=== PATIENT | female | born 1995 | race Two or more races ===

== ENCOUNTER 2024-05-18 07:45 | Outpatient (CLI) | payer MEDICAID, SELFPAY ==
[2024-05-18 07:59] VITALS: BP 119/76; PULSE 89
[2024-05-18 08:04] VITALS: BMI 31.5
== END 2024-05-18 08:50 | disposition home or self-care (01) ==
LOC: S4S1 07:50 → S4SX 07:51
PROVIDERS: Referring Provider Advanced Practice Midwife; Visit Provider Advanced Practice Midwife
DX: Z34.83 Encounter for supervision of other normal pregnancy, third trimester (principal); Z36.9 Encounter for antenatal screening, unspecified; Z3A.40 40 weeks gestation of pregnancy
CPT/HCPCS: 59025

== ENCOUNTER 2024-05-18 15:31 | Inpatient (IN) | payer MEDICAID, SELFPAY ==
[2024-05-18] VITALS (33 sets, daily range): BP systolic 103–121; BP diastolic 55–73; PULSE 67–97; O2SAT 96–99; BMI 30.9
[2024-05-18 16:13] LABS: Basophils % (Auto) 0 % (0-2.5); Eosinophils % (Auto) 0 % (0-10); Hematocrit 34.3 % (36.0-46.0); Hemoglobin 12.1 g/dL (12.0-16.0); Immature Granulocytes % (Auto) 1 % (0-0); Immature Granulocytes Auto 0.05 Thou/mm3 (0.00-0.00); Lymphocytes # (Auto) 1.3 Thou/mm3 (1.0-4.8); Lymphocytes % (Auto) 18 % (10-50); Mean Corpuscular HGB Conc 35.3 g/dl (31.0-37.0); Mean Corpuscular Hemoglobin 31.7 pg (25.0-35.0); Mean Corpuscular Volume 90 fL (80-100); Monocytes # (Auto) 0.5 Thou/mm3 (0.0-0.8); Monocytes % (Auto) 7 % (0-12); Neutrophils # (Auto) 5.2 Thou/mm3 (1.8-7.7); Neutrophils % (Auto) 74 % (37-80); Nucleated Red Blood Cell % 0 /100 WBC (0); Platelet Count 192 Thou/mm3 (140-440); RDW Standard Deviation 44.5 fL (36.4-46.3); Red Blood Count 3.82 Miln/mm3 (4.00-5.20)
--- NOTE | 2024-05-18 16:14 | XR_ITS ---
Examination: Complete OB ultrasound greater than 14 weeks Date and time of exam: May 18, 2024 1648 hrs. Indications: Labor evaluation, unknown presentation Findings: Viable intrauterine single fetus with single amniotic sac presentation cephalic Cardiac motion 158 BPM Placenta fundal grade 3 Umbilical cord insertion 3 vessel seen Amniotic fluid index 11.3 cm spine maternal left Cervix 3.2 cm Ovaries obscured by bowel gas. Composite estimated gestational age based on BPD, head circumference, abdominal circumference, femur length is 38 weeks 2 days Estimated weight 3464 g. Survey of intracranial anatomy, spinal anatomy, abdominal anatomy, four-chamber heart performed with no abnormalities identified. Impression: Viable intrauterine gestation cephalic presentation Estimated gestational age 38 weeks 2 days Estimated weight 3464.8 g.
[2024-05-18 16:50] LABS: Syphilis Nonreactive (Nonreactive)
[2024-05-18] MEDS: DINOPROSTONE 10 MG VAG.SUPP VAGINAL (18:11)
[2024-05-19] VITALS (53 sets, daily range): BP systolic 84–200; BP diastolic 47–117; PULSE 65–94; RESP 15–17; TEMP 36.9–37.2; O2SAT 91–99; BMI 30.9
--- NOTE | 2024-05-19 05:25 | PD.LDHP ---
Documentation for date of: 05/19/24 OB Labor/Induct. HPI History of Present Illness Chief complaint: elective induction : 3 Para: 1 Term pregnancies: 1 pregnancies: 0 Living children: 1 History of Abortions: Spontaneous and Elective: 1 History of Vaginal deliveries: 1 History of sections: No History of : No Date of last menstrual period: 08/11/23 LAYLA: 05/17/24 Gestational Age (weeks): 40 Gestational Age (days): 2 Gestational age based on last menstrual period: 40 Indication for induction: other (elective, term) History of present illness: 28-year-old 3 para 1 admit to labor and delivery for induction of labor. Patient is been followed at [facility] care. First visit 15 weeks. Last period August 11, 2023. Estimated due date 05/17/2024.. First ultrasound was in November and this confirmed dates. And then patient had a 22-week ultrasound that also confirm dates. Denies social habits. Denies surgery. Denies chronic illness. Patient is O+, antibody screen negative, RPR nonreactive, rubella immune, hepatitis B-, hep C negative, HIV negative, GBS negative, patient had recurrent UTIs and was taking prophylactic antibiotics with the . And 1 hour GTT was normal History of Present Dating criteria: LMP confirmed by 1st trimester US Adequate Care: Yes Ultrasounds: normal 1st trimester US and normal mid trimester US Obstetrical complications: none Medical complications: none Labs Labs: Negative: Hepatitis B, HIV, Chlamydia, Gonorrhea and Group Beta Strep Review of Systems Review of Systems Systems Reviewed: All systems reviewed, normal except as documented Past Medical History Surgical History SURGICAL: Negative Section Meds Home Medications and Allergies Home Medications ?Medication ?Instructions ?Recorded ?Confirmed ?Type [id number] 1 mg 2 tab PO DAILY 05/18/24 05/18/24 History tablet Allergies Allergy/AdvReac Type Severity Reaction Status Date / Time No Known Allergies Allergy Verified 05/18/24 08:06 OB Exam Physical Exam Vital signs: Temp Pulse Resp BP Pulse Ox 98.5 F 65 17 105/63 98 05/19/24 01:18 05/19/24 01:18 05/19/24 01:18 05/19/24 01:18 05/18/24 20:47 Narrative: Normal heart rate and rhythm. Lungs clear no wheezes. Gravid abdomen. Gynecoid pelvis. Estimated weight 8 pounds. Patient has a history of macrosomic baby. Vaginal exam on admission was 80%, 1, -3. Vertex. heart rate category 1 with accelerations and moderate variability and contractions about every 2 to 4 minutes Detailed Labor and Delivery Exam Dilation (cm): 1 Effacement (%): 70 Cervix position: mid station: -3 Consistency: soft Presentation: Vertex Cervical ripeness score: 4 Membranes: intact Baseline heart rate: 135 monitor accelerations: 15x15 monitor decelerations: None terminal operations supervisor variability: Moderate (11-25) Contraction frequency (min): 2-4 Contraction duration (sec): 30 Tachysystole: No Contraction intensity: Mild OB Results Labs 05/18/24 15:45 Labs: Short CBC 05/18/24 Range/Units 15:45 WBC 7.0 (3.6-11.0) Thou/mm3 Hgb 12.1 (12.0-16.0) g/dL Hct 34.3 L (36.0-46.0) % Plt Count 192 (140-440) Thou/mm3 Impressions Impression: induction OB Assessment & Plan Assessment and Plan (1) Normal labor and delivery: Status: Acute Additional Plan Induction method: per misoprostol protocol Plan: induction, anticipate NVD and consult MD kohli
[2024-05-19] MEDS: OXYTOCIN in NS 30 units 30 UNIT/500 ML BAG IV (10:47)
[2024-05-19] MEDS: MISOPROSTOL 50 mCg TABLET PO ×3 (15:53→23:54)
[2024-05-20] VITALS (88 sets, daily range): BP systolic 82–131; BP diastolic 43–83; PULSE 61–96; RESP 15–18; TEMP 36.3–37.1; O2SAT 91–99
[2024-05-20] MEDS: MISOPROSTOL 50 mCg TABLET PO (03:52)
[2024-05-20] MEDS: MINERAL OIL 30 ML UDC TOP (08:55)
[2024-05-20] MEDS: MISOPROSTOL 200 mCg TABLET 800 MCG PR (08:58)
[2024-05-20] MEDS: OXYTOCIN INJ 10 UNIT/ML VIAL IM (09:01)
[2024-05-20] MEDS: TRANEXAMIC ACID 1,000 MG IVPB 1,000 MG/100 ML BAG 200 MG IV ×2 (09:01→10:50)
[2024-05-20] MEDS: METHYLERGONOVINE INJ 0.2 MG/ML VIAL IM (09:05)
[2024-05-20] MEDS: OXYTOCIN in NS 20 units 20 UNIT/1,000 ML BAG 125 UNIT IV (09:07)
[2024-05-20] MEDS: IBUPROFEN TAB 400 MG TABLET 800 MG PO (09:19)
[2024-05-20] MEDS: ONDANSETRON INJ 2 MG/ML INJ 2 ML 4 MG IV (09:30)
[2024-05-20] MEDS: BENZO/LANO/ALOE (Dermoplast) 60 GM CAN 1 SPRAY TOP (09:31)
--- NOTE | 2024-05-20 09:41 | PD.LDDELS ---
Data (Galindo) Data Hx Section: No : 3 Para: 1 Term: 1 : 0 : 1 Delivery Data (Galindo) Labor Data Stimulated/Augmented: No Induction: Yes Method: Cervidil (cytotec and pitocin) ROM Date: 05/20/24 ROM Time: 02:06 Rupture Type: SROM Amniotic Fluid: Clear Delivery Data EDC: 05/17/24 EDC calculated by:: LMP/early US confirmation Labor Onset Stage 1 Date: 05/20/24 Labor Onset Stage 1 Time: 06:25 Labor Onset Stage 2 Date: 05/20/24 Labor Onset Stage 2 Time: 08:25 Delivery Date: 05/20/24 Delivery Time: 08:56 Gestational age (weeks): 40 Gestational age (days): 2 Placenta Delivery Date: 05/20/24 Placenta Delivery Time: 09:01 Delivered by: Frida De Jesus Delivery nurse: Lalitha Alex Other staff at delivery: Nursery Nurse Other staff at delivery: 2nd Nurse Other staff at delivery: Edna Armenta Other staff at delivery: Jade Thomas Delivery Method Delivery: Vaginal Delivery Type: Spontaneous Presentation: Vertex Position: OA Anesthesia Type Primary Anesthesia: Epidural Delivery Room Medications Intrapartum Medications: Tocolytics Post Delivery Medications: Antibiotics, Tocolytics, Cytotec and Ergotrate Post Delivery Medications N/A: No Placenta Placenta Delivery: Spontaneous (manually removed placenta after separation, inspected, all lobes present, membranes intact) Placenta Cultures Obtained: No Placenta Sent for Examination: No Cord Sample: Cord Blood Obtained Episiotomy Episiotomy: None Lacerations #1: Vaginal: 1st degree Perineal repair Sutures used for repair: 3.0 Vicryl EBL Estimated blood loss (ml): 900 Umbilical Cord Umbilical Vessels: 3 Nuchal Cord: None Body Cord: x1 (both feet) Additional Procedures uterus flacid . larges gushses of blood, firm with massage, then relaxes and continued bleeding, OB at bedside to inspect bleeding. no laceration, bleeding is slowing with massage, pitocin 10 IM cytotec 800 NE, methergine 0.2 im, TXA and pitocin IV running. Data (Galindo) Data Infant Gender: Female Infant Weight Grams: 3710 1 Minute Total: 9 5 Minute Total: 9
[2024-05-20] MEDS: ceFAZolin/D5W 2 GM IV 2 GM/100 ML BAG IV ×3 (09:45→23:40)
[2024-05-20 10:24] LABS: Basophils % (Auto) 0 % (0-2.5); Eosinophils % (Auto) 0 % (0-10); Hematocrit 35.4 % (36.0-46.0); Hemoglobin 12.2 g/dL (12.0-16.0); Immature Granulocytes % (Auto) 0 % (0-0); Immature Granulocytes Auto 0.05 Thou/mm3 (0.00-0.00); Lymphocytes % (Auto) 9 % (10-50); Mean Corpuscular HGB Conc 34.5 g/dl (31.0-37.0); Mean Corpuscular Hemoglobin 31.4 pg (25.0-35.0); Mean Corpuscular Volume 91 fL (80-100); Monocytes # (Auto) 0.7 Thou/mm3 (0.0-0.8); Monocytes % (Auto) 6 % (0-12); Neutrophils # (Auto) 9.8 Thou/mm3 (1.8-7.7); Neutrophils % (Auto) 85 % (37-80); Nucleated Red Blood Cell % 0 /100 WBC (0); Platelet Count 185 Thou/mm3 (140-440); RDW Standard Deviation 44.5 fL (36.4-46.3); Red Blood Count 3.88 Miln/mm3 (4.00-5.20); White Blood Count 11.5 Thou/mm3 (3.6-11.0)
[2024-05-20 15:58] LABS: Basophils % (Auto) 0 % (0-2.5); Eosinophils % (Auto) 0 % (0-10); Hematocrit 31.8 % (36.0-46.0); Hemoglobin 11.1 g/dL (12.0-16.0); Immature Granulocytes % (Auto) 1 % (0-0); Immature Granulocytes Auto 0.06 Thou/mm3 (0.00-0.00); Lymphocytes % (Auto) 8 % (10-50); Mean Corpuscular HGB Conc 34.9 g/dl (31.0-37.0); Mean Corpuscular Hemoglobin 31.5 pg (25.0-35.0); Mean Corpuscular Volume 90 fL (80-100); Monocytes # (Auto) 0.8 Thou/mm3 (0.0-0.8); Monocytes % (Auto) 7 % (0-12); Neutrophils # (Auto) 9.7 Thou/mm3 (1.8-7.7); Neutrophils % (Auto) 84 % (37-80); Nucleated Red Blood Cell % 0 /100 WBC (0); Platelet Count 200 Thou/mm3 (140-440); RDW Standard Deviation 44.1 fL (36.4-46.3); Red Blood Count 3.52 Miln/mm3 (4.00-5.20); White Blood Count 11.6 Thou/mm3 (3.6-11.0)
[2024-05-20] MEDS: DOCUSATE SOD 100 MG CAPSULE PO (23:40)
[2024-05-21 00:02] VITALS: BP 106/66; PULSE 77; RESP 16; TEMP 36.6; O2SAT 97
[2024-05-21 04:40] VITALS: BP 100/66; PULSE 88; RESP 18; TEMP 36.7; O2SAT 100
--- NOTE | 2024-05-21 06:37 | PD.LDPPPRG ---
Subjective Subjective Interval history: No complaints of pain. No dizziness. Bonding and breast-feeding. Exam Vital Signs Temp Pulse Resp BP Pulse Ox O2 Del Method 98.1 F 88 18 100/66 100 Room Air 05/21/24 04:40 05/21/24 04:40 05/21/24 04:40 05/21/24 04:40 05/21/24 04:40 05/21/24 04:40 Narrative Exam Vital signs are stable afebrile. Breasts are soft. Fundus firm below the umbilicus. Perineum is intact. Small vaginal lacerations are healing. Lochia is small. Negative Homans' sign. No redness or swelling. Uterus is well involuted Objective Labs 05/20/24 15:30 Labs: Laboratory Results - last 24 hr 05/18/24 05/20/24 05/20/24 15:45 10:03 15:30 WBC 11.5 H D 11.6 H RBC 3.88 L 3.52 L Hgb 12.2 11.1 L Hct 35.4 L 31.8 L MCV 91 90 MCH 31.4 31.5 MCHC 34.5 34.9 RDW Std Deviation 44.5 44.1 Plt Count 185 200 Neut % (Auto) 85 H 84 H Lymph % (Auto) 9 L 8 L [place] % (Auto) 6 7 Eos % (Auto) 0 0 Baso % (Auto) 0 0 Neut # (Auto) 9.8 H 9.7 H Lymph # (Auto) 1.0 1.0 [place] # (Auto) 0.7 0.8 Eos # (Auto) 0.0 0.0 Baso # (Auto) 0.0 0.0 Immature Gran # (Auto) 0.05 H 0.06 H Absolute Nucleated RBC 0.00 0.00 Immature Gran % 0 1 H Nucleated RBC % 0 0 Blood Type O Positive Antibody Screen NEGATIVE Crossmatch See Detail Blood Bank Wristband ID Yes Assessment & Plan Problem List (1) Normal labor and delivery: Status: Acute Assessment Comment Assessment comment: 24 hr pp Plan Comment Plan Comment: Discharge home with mom today. Patient will be discharged home on iron twice daily and Colace 1 twice daily for 7 days. She is to increase fluids and eat plenty of greens. Tylenol or ibuprofen for pain. Discussed danger signs and symptoms. Discussed ER precautions and parameters. Discussed signs symptoms of infection. Return in 2 weeks . Discussed care for laceration Time Spent With Patient Time: Total time spent is greater than 50% in coordination of care (as documented) at patient's floor/unit and/or counseling patient:
--- NOTE | 2024-05-21 06:39 | PD.LDDS ---
DS: Providers Provider Date of admission: 05/18/24 15:31 Primary care physician: Physician No Primary/Family Admitting Provider: Frida De Jesus CNM Attending Provider on Admission: Frida De Jesus CNM Consults: 05/20/24 09:51 Referral Routine Comment: Attending Provider on DC: Frida De Jesus CNM Discharging Provider: Frida De Jesus CNM DS: Diagnosis Problem List Completed Was Problem List Reviewed/Reconciled?: Yes Summary/Hosp Course Brief History: 28-year-old 3 para 1 admit to labor and delivery for induction of labor. Patient is been followed at [facility] care. First visit 15 weeks. Last period August 11, 2023. Estimated due date 05/17/2024.. First ultrasound was in November and this confirmed dates. And then patient had a 22-week ultrasound that also confirm dates. Denies social habits. Denies surgery. Denies chronic illness. Patient is O+, antibody screen negative, RPR nonreactive, rubella immune, hepatitis B-, hep C negative, HIV negative, GBS negative, patient had recurrent UTIs and was taking prophylactic antibiotics with the . And 1 hour GTT was normal Peripartum Data Delivery Method: Normal Vaginal Delivery Episiotomy Description: None Laceration Description: yes (small 1st vag) Time Spent with Patient Time attestation: Total time spent providing and/or coordinating discharge services: Exam Vital Signs Temp Pulse Resp BP Pulse Ox O2 Del Method 98.1 F 88 18 100/66 100 Room Air 05/21/24 04:40 05/21/24 04:40 05/21/24 04:40 05/21/24 04:40 05/21/24 04:40 05/21/24 04:40 Discharge Plan Plan Patient Disposition: HOME (Self Care) Patient condition on transfer: Stable Prescriptions/Referrals Prescriptions/Med Rec: New PNV [id number] [] 28 mg iron- 800 mcg tablet 1 tab PO QDAY Qty: 60 1RF ferrous sulfate 325 mg (65 mg iron) tablet 325 mg PO BID Qty: 60 1RF docusate sodium [Colace] 100 mg capsule 100 mg PO BID Qty: 20 0RF No Action 1 mg Tablet 2 tab PO DAILY Referrals: No Primary/Family,Physician [Primary Care Provider] - Patient/Caregiver Discharge Instructions Meds to Beds: No Discharge Activity: resume usual activities Print Language: Cypriot Activity Restrictions/Additional Instructions: Discharge home with baby. Continue vitamins and iron twice daily. Prescription was given to patient. Colace 100 twice daily x 10 days given the patient. Discussed ER precautions and gave parameters. Discussed signs and symptoms of infection and danger signs. Increase fluids. Increase rest. Increase iron foods. Discussed care for first-degree vaginal tear. Return to clinic 3 weeks visit Stand Alone Forms: Elva Award Info., Patient Portal Info Letter Discharge Order Discharge Orders: Discharge (Routine); Ordered 05/21/24 Ordered By: Frida De Jesus Planned Discharge Date 05/21/24
[2024-05-21 08:51] VITALS: BP 98/63; PULSE 90; RESP 16; TEMP 36.9; O2SAT 96
--- NOTE | 2024-05-21 08:54 | PC.LAC ---
Follow up with mom regarding use of nipple shield, mom states she is doing fine and she is seeing milk inside the shield when baby comes off. Explained that a little is fine, that she will not see increase in milk till later today. Mom understood
== END 2024-05-21 13:40 | disposition home or self-care (01) | DRG 560 ==
LOC: S4SX 17:10 → S4NX 20:44 → S4SX 20:44 → S4NX 05-20 11:31
PROVIDERS: Admitting Provider Advanced Practice Midwife; Visit Provider Advanced Practice Midwife
DX: O48.0 Post-term pregnancy (principal); Z37.0 Single live birth; Z3A.40 40 weeks gestation of pregnancy; O69.82X0 Labor and delivery complicated by other cord entanglement, without compression, not applicable or unspecified; O70.0 First degree perineal laceration during delivery
CPT/HCPCS: 36415; 76805; 85025; 86780; 86850; 86900; 86901; 86923; J0689; J2210; J2274; J2405; J2590; J2795; J3010; J3490; S0191; A9270; J0690; J2270